=== PATIENT | female | born 1990 | race Caucasian/White ===

== ENCOUNTER 2021-12-15 01:59 | Emergency (ER) | payer SELFPAY ==
--- NOTE | 2021-12-15 02:10 | NUR ---
Patient went up to registration window and stated " I don't want to be seen anymore and I will be going to urgent care instead." Patient left ER.l
--- NOTE | 2021-12-15 02:25 | NUR ---
Pamela swan in [facility] - 12/15/21 at 0249 by [id number] p
--- NOTE | 2021-12-15 02:25 | NUR ---
PATIENT WAS NOT TRIAGED OR SEEN BY [facility].
== END 2021-12-15 02:30 | disposition left against medical advice (07) ==
LOC: ER 02:04
DX: Z53.21 Procedure and treatment not carried out due to patient leaving prior to being seen by health care provider (principal)